=== PATIENT | male | born 1965 | race Caucasian/White ===

== ENCOUNTER 2019-03-09 11:14 | Emergency (ER) | payer OTHER, BC ==
[~2019-03-09] VITALS: Ht 185.4 cm; Wt 158.8 kg
[~2019-03-09 11:14] MED LIST: KEFLEX500 MG PO; NORCO 7.5-3251 EACH PO
== END 2019-03-09 13:15 | disposition home or self-care (01) ==
LOC: ED 11:14
DX: S16.1XXA Strain of muscle, fascia and tendon at neck level, initial encounter (principal); S29.012A Strain of muscle and tendon of back wall of thorax, initial encounter; Z88.5 Allergy status to narcotic agent; Z87.891 Personal history of nicotine dependence; V53.5XXA Driver of pick-up truck or van injured in collision with car, pick-up truck or van in traffic accident, initial encounter; W22.10XA Striking against or struck by unspecified automobile airbag, initial encounter
CPT/HCPCS: 90471; 90715; 99283-25

== ENCOUNTER 2022-01-22 05:16 | Emergency (ER) | payer BC ==
[~2022-01-22] VITALS: Ht 182.9 cm; Wt 153.9 kg
[2022-01-22] MEDS ORDERED: PREDNISONE20 MG PO (06:32)
[2022-01-22] MEDS ORDERED: VENTOLIN HFA18 GM INH (06:32)
[2022-01-22] MEDS ORDERED: BENZONATATE100 MG PO (06:32)
--- NOTE | 2022-01-22 06:59 | EKG ---
[facility] [address] [place], [place] [address] Signed Normal sinus rhythm Low voltage QRS Borderline ECG No previous ECGs available Confirmed by DENZEL VASQUEZ MD ([id number] on 01/22/2022 6:59:21 AM Electronically Signed By: DENZEL VASQUEZ MD 01/22/22 0659 PATIENT NAME: SUSAN JENSEN Electrocardiogram DATE OF : 63 PHYSICIAN: DENZEL VASQUEZ MD REPORT #: [id number] REPORT IS CONFIDENTIAL AND NOT TO BE RELEASED WITHOUT AUTHORIZATION
== END 2022-01-22 06:43 | disposition home or self-care (01) ==
LOC: ED 05:16
DX: J20.8 Acute bronchitis due to other specified organisms (principal); Z87.891 Personal history of nicotine dependence; Z88.5 Allergy status to narcotic agent
CPT/HCPCS: 36415; 71045; 80053; 83880; 84484; 85025; 93005; 93010; 94640; J2930